=== PATIENT | male | born 1960 | race Caucasian/White ===

== ENCOUNTER → 2018-09-13 | Day surgery (SDC) | payer BC ==
[~2018-09-13] MED LIST: DIABETES HEALT1 EACH PO; FENTANYL CITRATE/PF 100MCG/2 ML INJ ONE; GLUCAGON FOR INJ 1 MG VIAL ONE; HYOSCYAMINE 0.125 MG TAB ONE; MIDAZOLAM HCL 2 MG/2 ML VIAL ONE; PRAVASTATIN SOD10 MG PO; PROPOFOL IV EMULSION 10 MG/ML 50 ML VIAL ONE
[2018-09-13 13:45] VITALS: BP 113/68
--- NOTE | 2018-09-13 14:01 | Operative Report ---
DATE OF PROCEDURE: 09/13/2018 SURGEON: Maikel Nino MD PROCEDURE: Colonoscopy with polypectomy. INDICATIONS FOR COLONOSCOPY: Colorectal cancer screening. MEDICATIONS: The patient was done under MAC, please see anesthesiologist's note. PROCEDURE IN DETAIL: With the patient in left lateral decubitus position, flexible fiberoptic Olympus colonoscope was inserted into the rectum with ease and advanced all the way to the cecum. There were some retained fecal material in the colon, primarily the right colon. The scope was then withdrawn slowly and whatever was visualized of the mucosa overlying the cecum appeared to be within normal limits. A single diverticulum was noted in the proximal ascending colon. The transverse appeared to be within normal limits. One minute polyp was removed per cold biopsy forceps from the descending colon. Scattered diverticular disease was noted in the descending and the sigmoid colon. One polyp was removed per cold biopsy forceps and an additional polyp was removed per hot biopsy forceps from the sigmoid colon. One polyp in the rectum was hot biopsied. The scope was then retroflexed into the distal rectum and small internal hemorrhoids were noted, none of which was actively bleeding. The scope was then straightened out, it was subsequently withdrawn. The patient tolerated procedure well. IMPRESSION: 1. Diverticulosis. 2. Descending colon polyp, removed per cold biopsy forceps. 3. Sigmoid colon polyps x2, hot biopsied. 4. Rectal polyp, hot biopsied. 5. Internal hemorrhoids, none actively bleeding. PLAN: Follow up histology. Initiate high-fiber, low-fat diet. Initiate high-fiber supplement. The patient might benefit from a followup colonoscopy in 1 to 2 years due to the suboptimal prep. Maikel Nino MD [facility] [place] /[id number] cc: Anibal Paula MD
== END | disposition home or self-care (01) ==
LOC: OR 09:14
PROVIDERS: ATTEND Internal Medicine Gastroenterology
DX: Z12.11 Encounter for screening for malignant neoplasm of colon (principal); K63.5 Polyp of colon; K62.1 Rectal polyp; K57.30 Diverticulosis of large intestine without perforation or abscess without bleeding; K64.8 Other hemorrhoids; K59.00 Constipation, unspecified; E11.9 Type 2 diabetes mellitus without complications; R00.1 Bradycardia, unspecified; E78.00 Pure hypercholesterolemia, unspecified; Z72.0 Tobacco use; Z88.0 Allergy status to penicillin; Z01.810 Encounter for preprocedural cardiovascular examination; Z68.27 Body mass index [BMI] 27.0-27.9, adult; Z83.79 Family history of other diseases of the digestive system
CPT/HCPCS: 36415; 45380; 45384; 82948; 93005; J1610; J2250; J2704; 45378; J3010